=== PATIENT | female | born 1990 | race Caucasian/White ===

== ENCOUNTER 2020-12-11 12:28 | Inpatient (IN) | payer MEDICAID, SELFPAY ==
[2020-12-11 13:04] VITALS: BP 144/100; PULSE 103; RESP 18; TEMP 37; O2SAT 98
[2020-12-11 14:00] VITALS: BP 144/100; PULSE 103; RESP 18; TEMP 37
[2020-12-11 22:00] VITALS: BP 125/91; PULSE 98; RESP 18; TEMP 36.9; O2SAT 96
[2020-12-12] MEDS: ondansetron 4 MG Tablet PO (02:25)
--- NOTE | 2020-12-12 02:25 | PC.NURSE ---
pt requested med for puny feeling, zofran 4mg ppo given.
--- NOTE | 2020-12-12 03:30 | PC.NURSE ---
pt resting quietly with both eyes closed.
--- NOTE | 2020-12-12 12:36 | P.HP_ITS ---
Providers/Chief Complaint Admitting Physician: Remi Eldridge MD Chief Complaint: SI/dep - ROOM 124 HPI NPU History of Present Illness Sanjana Zavala is a 30 year old female who presented to the outside hospital endorsing suicidality, active addiction and was placed on a 96-hour hold. She was transferred to [facility] and admitted to the neuropsychiatric unit for definitive treatment of those issues. She reports that she was at [facility] for a day or 2 having alcohol withdrawal and currently she still having a little bit of a struggle with the alcohol. She denies previous psychiatric hospitalization, outpatient services or any mental health treatment with medications for PCP or anyone else. She reports she smokes cigarettes sometimes, drink alcohol near daily maybe 5-7 times a week about 1/2 pint a day she denies marijuana or any other illicit drug use. She went to a rehab called [facility] for detox at 1 point and is never had a DUI. She denies any history of suicide attempts in the past. She reports the nidus of her hospitalization is likely that her mother and she started drinking more heavily and at one point she had been eating and she had not stop drinking but she reports having a seizure. She reports her mother October 14 from a stroke unexpectedly. She reports that she fell back on old patterns which included drinking and that she had about 3 episodes that are likely notable for diminished eating behavior. Additionally in the same time her mother she caught her boyfriend cheating that along with some other psychosocial stressors really created a depressing situation where she was having thoughts to kill himself. At this point she feels she first needs to stop drinking and we discussed the risk benefits and alternatives of starting Librium 25 mg p.o. 3 times daily for her final days of withdrawal hopefully and we discussed a possible antidepressant/antianxiety medication in the morning. Psychiatric history: As above. Substance abuse history: As above. Family history: She endorses mental health and addiction issues on her father side the family but denies any suicide attempts or completions on either side of family. Developmental history: There were no problems with the , or delivery, learned to walk and talk and met developmental milestones on time, and denies need for speech therapy, learning support, emotional support or special education classes. Psychosocial history: She reports her parents were together when she was born and that there are 3 children that are product of their union. She has 2 older brothers that she had the same to parents. Her mother had 2 other children and her father had one other child that are her half siblings. She reports that her childhood was to [facility] at times with her dad's drinking and her parents fighting but she reports that her childhood was pretty normal and denies any emotional physical or sexual abuse. She endorses that she graduated high school and that she is a heterosexual with her longest relationship being 11 years. She never been , she never had children, she never been in the , and she endorses being a Evangelical. She reports her mom's appointment is customer service at [place] [id number] which is a convenient store this not in this area. She currently lives in a house with her brother who owns the house along with his and son. Legal history: Denied. Medical history: She reports that she has had low blood pressure issues in the past. Meds NPU Home Medications Medication Instructions Recorded Confirmed Last Taken Type No Known Home Medications 12/12/20 12/12/20 Unknown History Allergies Allergy/AdvReac Type Severity Reaction Status Date / Time No Known Allergies Allergy Verified 12/12/20 01:19 Mental Status Exam MSE Comments: This is an underweight white female in hospital scrubs with adequate grooming and eye contact. No abnormal movements except for mild psychomotor retardation. Cooperative with exam in mild distress. Speech was normal rate and volume. Mood described as better than yesterday, affect slightly subdued. Thought process organized. Thought contact: patient denies suicidal or homicidal ideation, there were no delusions reported or noted, patient denied auditory or visual hallucinations. Attention and concentration appeared intact and memory appeared reliable but none were formally tested. Patient is alert and oriented times three. Insight and judgment appear fair and impulse control appears limited. Vitals/I&O/Wt Last Vital Signs Temp 98.1 F 12/12/20 12:51 Pulse 118 H 12/12/20 12:51 Resp 16 12/12/20 12:51 BP 113/78 12/12/20 12:51 Pulse Ox 100 12/12/20 12:51 Weight last 48 hrs Weight 49.895 kg A&P Assessment and plan (1) Alcohol use disorder, severe, dependence: Status: Acute (2) Alcohol withdrawal: Status: Acute (3) Partner relational problem: Status: Acute (4) Bereavement: Status: Acute (5) Depression with anxiety: Status: Acute Additional A&P Information This is a 31-year-old white female with a long history of alcohol use and recent psychosocial challenges including and infidelity who presents with depression, suicidal thoughts on the 96-hour hold in the final stages of withdrawal. 1. Continue current medication. We will start Librium 25 mg p.o. 3 times daily for couple of days and discussed the possibility of starting antidepressants/anxiolytics in the morning. 2. Continue every 15 minute checks for safety. 3. Encourage individual, group and milieu therapies. 4. Encourage sober living treatment after discharge at the highest level of care to which he is willing to commit. Involuntary Hold Information 96 Hour Hold: 96 Hour Involuntary Admission: No Attestations NPU Medical Necessity Statement*: Inpatient hospitalization is medically necessary and the clinically appropriate intervention at this time. We will monitor medications and make changes as indicated. Patient will be in the hospital for over two midnights. Likely length of stay 2-4 days. Coding Level of Care Code Acute Senior Bi Architect for Jose Watson Diagnoses Alcohol use disorder, severe, dependence F10.20 Alcohol withdrawal F10.239 Partner relational problem Z63.0 Bereavement Z63.4 Depression with anxiety F41.8
[2020-12-12 12:51] VITALS: BP 113/78; PULSE 118; RESP 16; TEMP 36.7; O2SAT 100
[2020-12-12 20:22] VITALS: BP 127/89; PULSE 117; RESP 22; TEMP 36.8; O2SAT 97
[2020-12-12] MEDS: chlordiazePOXIDE 25 mg Capsule PO (21:24)
[2020-12-12] MEDS: trazodone 50 mg Tablet PO (21:24)
--- NOTE | 2020-12-12 21:25 | PC.NURSE ---
pt requested sleep med, Trazodone 50mg po given
--- NOTE | 2020-12-12 23:37 | PC.NURSE ---
pt resting quietly with both eyes closed.
[2020-12-13 06:00] VITALS: BP 115/79; PULSE 63; RESP 20; TEMP 36.5; O2SAT 96
[2020-12-13] MEDS: hyDROXYzine 25 mg Capsule 50 MG PO ×2 (06:41→21:50)
[2020-12-13] MEDS: loperamide 2 mg Capsule PO (06:41)
[2020-12-13] MEDS: chlordiazePOXIDE 25 mg Capsule PO ×3 (08:48→21:50)
[2020-12-13 14:00] VITALS: BP 100/65; PULSE 86; RESP 16; TEMP 36.7; O2SAT 98
--- NOTE | 2020-12-13 16:03 | PM.NPN ---
Subjective NPU Subjective: Interval history: Patient presents today reporting that the Librium was quite effective and that she is feeling pretty decent overall. A little groggy in has not eaten much but otherwise reports that she feels like she is improving. We discussed a plan to decrease the Librium from 3 a day to 2 a day and possibly getting her a couple for discharge but otherwise she feels confident her withdrawal is coming to a close. We discussed the risk-benefit and alternatives of likely discharge in the next 48 hours and she understood and agreed proceed as documented in this note. Mental Status Exam MSE Comments: This is an underweight white female in hospital scrubs with adequate grooming and eye contact. No abnormal movements except for mild psychomotor retardation. Cooperative with exam in no acute distress. Speech was normal rate and volume. Mood described as better, affect slightly subdued. Thought process organized. Thought contact: patient denies suicidal or homicidal ideation, there were no delusions reported or noted, patient denied auditory or visual hallucinations. Attention and concentration appeared intact and memory appeared reliable but none were formally tested. Patient is alert and oriented times three. Insight and judgment appear fair and impulse control appears limited, but improving. Vitals/I&O/Wt Last Vital Signs Temp 97.3 F L 12/13/20 22:00 Pulse 111 H 12/13/20 22:00 Resp 18 12/13/20 22:00 BP 116/85 12/13/20 22:00 Pulse Ox 100 12/13/20 22:00 A&P Additional A&P Information (1) Alcohol use disorder, severe, dependence: (2) Alcohol withdrawal: (3) Partner relational problem: (4) Bereavement: (5) Depression with anxiety: Additional A&P Information This is a 31-year-old white female with a long history of alcohol use and recent psychosocial challenges including and infidelity who presents with depression, suicidal thoughts on the 96-hour hold in the final stages of withdrawal. 1. Continue current medication. 2. Continue every 15 minute checks for safety. 3. Encourage individual, group and milieu therapies. 4. Encourage sober living treatment after discharge at the highest level of care to which he is willing to commit. Involuntary Hold Information 96 Hour Hold: 96 Hour Involuntary Admission: No Attestations NPU Medical Necessity Statement*: Inpatient hospitalization is medically necessary and the clinically appropriate intervention at this time. We will monitor medications and make changes as indicated. Likely length of stay 1-3 days. Coding Level of Care Code Acute Car Rental Manager for Jose Watson
[2020-12-13] MEDS: trazodone 50 mg Tablet PO (21:50)
--- NOTE | 2020-12-13 21:50 | PC.NURSE ---
PT REQUESTED SLEEP AND ANXIETY MEDS, TRAZODONE 50MG PO FOR SLEEP AND VISTARIL 50MG PO FOR ANXIETY GIVEN.
[2020-12-13 22:00] VITALS: BP 116/85; PULSE 111; RESP 18; TEMP 36.3; O2SAT 100
--- NOTE | 2020-12-13 23:00 | PC.NURSE ---
PT RESTING QUIETLY WITH BOTH EYES CLOSED.
[2020-12-14 06:00] VITALS: BP 116/85; PULSE 111; RESP 18; TEMP 36.3; O2SAT 100
[2020-12-14] MEDS: loperamide 2 mg Capsule PO ×2 (08:46→19:00)
[2020-12-14] MEDS: hyDROXYzine 25 mg Capsule 50 MG PO ×3 (08:46→21:08)
[2020-12-14] MEDS: chlordiazePOXIDE 25 mg Capsule PO ×3 (08:46→21:08)
[2020-12-14 13:48] VITALS: BP 109/74; PULSE 87; RESP 18; TEMP 36.7; O2SAT 97
--- NOTE | 2020-12-14 17:14 | PM.NPN ---
Subjective NPU Subjective: Interval history: Patient presents today reporting that she is feeling much better. We discussed cutting down on the Librium tomorrow. Including the risk benefits and alternatives and a plan for moving forward which might include a few pills if necessary but only a few. She continues to deny need for an antidepressant feeling that once her recovery is further advanced her mood will improve. She did discuss concerns about her brother calling and endorsing a plan to take her to the program she detoxed from in the past for 21-day treatment. He did not seem convinced to the treatment team that she needed therapy but apparently believes she needs 21 days. We discussed the fact that what she does after she discharges is up to her and we discussed the likelihood of discharge tomorrow. Mental Status Exam MSE Comments: This is an underweight white female in hospital scrubs with adequate grooming and eye contact. No abnormal movements except for mild psychomotor retardation. Cooperative with exam in no acute distress. Speech was normal rate and volume. Mood described as a little depressed but better, affect slightly subdued. Thought process organized. Thought contact: patient denies suicidal or homicidal ideation, there were no delusions reported or noted, patient denied auditory or visual hallucinations. Attention and concentration appeared intact and memory appeared reliable but none were formally tested. Patient is alert and oriented times three. Insight and judgment appear fair and impulse control appears limited, but improving. Vitals/I&O/Wt Last Vital Signs Temp 98.8 F 12/14/20 20:49 Pulse 70 12/14/20 20:49 Resp 20 H 12/14/20 20:49 BP 116/70 12/14/20 20:49 Pulse Ox 97 12/14/20 20:49 A&P Additional A&P Information (1) Alcohol use disorder, severe, dependence: (2) Alcohol withdrawal: (3) Partner relational problem: (4) Bereavement: (5) Depression with anxiety: This is a 31-year-old white female with a long history of alcohol use and recent psychosocial challenges including and infidelity who presents with depression, suicidal thoughts on the 96-hour hold in the final stages of withdrawal. 1. Continue current medication. 2. Continue every 15 minute checks for safety. 3. Encourage individual, group and milieu therapies. 4. Encourage sober living treatment after discharge at the highest level of care to which he is willing to commit. 5. Likely plan for discharge tomorrow. Involuntary Hold Information 96 Hour Hold: 96 Hour Involuntary Admission: No Attestations NPU Medical Necessity Statement*: Inpatient hospitalization is medically necessary and the clinically appropriate intervention at this time. We will monitor medications and make changes as indicated. Likely length of stay 1-2days. Coding Level of Care Code Acute Sewage Plant Operator for Jose Watson
[2020-12-14 20:49] VITALS: BP 116/70; PULSE 70; RESP 20; TEMP 37.1; O2SAT 97
[2020-12-14] MEDS: trazodone 50 mg Tablet PO (21:08)
[2020-12-15] MEDS: OLANZapine 5 mg ODT PO (01:56)
[2020-12-15] MEDS: trazodone 50 mg Tablet PO (01:56)
--- NOTE | 2020-12-15 01:58 | PC.NURSE ---
prn administered Zydis 5mg for anxiety and 50mg trazodone at this time for sleep, pt's roommate next door is keeping her awake.
[2020-12-15 06:00] VITALS: BP 98/64; PULSE 94; RESP 17; TEMP 36.7; O2SAT 96
[2020-12-15] MEDS: chlordiazePOXIDE 25 mg Capsule PO (08:44)
--- NOTE | 2020-12-15 11:57 | P.DS_ITS ---
Diagnoses at Discharge Discharge Diagnosis (1) Alcohol use disorder, severe, dependence: Status: Acute (2) Alcohol withdrawal: Status: Acute (3) Partner relational problem: Status: Acute (4) Bereavement: Status: Acute (5) Depression with anxiety: Status: Acute Reason for Visit Reason for Visit: SI/dep - ROOM 124 Brief History: History of Present Illness Sanjana Zavala is a 30 year old female who presented to the outside hospital endorsing suicidality, active addiction and was placed on a 96-hour hold. She was transferred to [facility] and admitted to the neuropsychiatric unit for definitive treatment of those issues. She reports that she was at [facility] for a day or 2 having alcohol withdrawal and currently she still having a little bit of a struggle with the alcohol. She denies previous psychiatric hospitalization, outpatient services or any mental health treatment with medications for PCP or anyone else. She reports she smokes cigarettes sometimes, drink alcohol near daily maybe 5-7 times a week about 1/2 pint a day she denies marijuana or any other illicit drug use. She went to a rehab called [facility] for detox at 1 point and is never had a DUI. She denies any history of suicide attempts in the past. She reports the nidus of her hospitalization is likely that her mother and she started drinking more heavily and at one point she had been eating and she had not stop drinking but she reports having a seizure. She reports her mother October 14 from a stroke unexpectedly. She reports that she fell back on old patterns which included drinking and that she had about 3 episodes that are likely notable for diminished eating behavior. Additionally in the same time her mother she caught her boyfriend cheating that along with some other psychosocial stressors really created a depressing situation where she was having thoughts to kill himself. At this point she feels she first needs to stop drinking and we discussed the risk benefits and alternatives of starting Librium 25 mg p.o. 3 times daily for her final days of withdrawal hopefully and we discussed a possible antidepressant/antianxiety medication in the morning. Psychiatric history: As above. Substance abuse history: As above. Family history: She endorses mental health and addiction issues on her father side the family but denies any suicide attempts or completions on either side of family. Developmental history: There were no problems with the , or delivery, learned to walk and talk and met developmental milestones on time, and denies need for speech therapy, learning support, emotional support or special education classes. Psychosocial history: She reports her parents were together when she was born and that there are 3 children that are product of their union. She has 2 older brothers that she had the same to parents. Her mother had 2 other children and her father had one other child that are her half siblings. She reports that her childhood was tough at times with her dad's drinking and her parents fighting but she reports that her childhood was pretty normal and denies any emotional physical or sexual abuse. She endorses that she graduated high school and that she is a heterosexual with her longest relationship being 11 years. She never been , she never had children, she never been in the , and she endorses being a [employer]. She reports her mom's appointment is customer service at [place] [id number] which is a convenient store this not in this area. She currently lives in a house with her brother who owns the house along with his and son. Legal history: Denied. Medical history: She reports that she has had low blood pressure issues in the past. Hospital Course Hospital Course She slowly acclimated to the individual, group and milieu therapy provided. Discussed the possibility of antidepressants but she was convinced that he wants her addiction was well managed depression with her weight. She showed significant improvement and had arrangements with her family to start any rehab a couple days after discharge. She was able to contract for safety prior to discharge. At the outside hospital, patient had routine laboratory studies which were within normal limits except for few outliers. Additionally there was a general medical evaluation which was also within normal limits and revealed no new acute processes. Discharge Summary: At the time of discharge, psychosis and lethality were denied. Mood and anxiety were well managed. Patient endorsed a plan to avoid all drugs of abuse and follow-up with the aftercare recommendations of the treatment team. Patient was evaluated and deemed to be absent credible lethality, and had achieved the maximum benefit from an inpatient hospitalization, so was discharged. Involuntary Hold Information 96 Hour Hold: 96 Hour Involuntary Admission: No Mental Status Exam MSE Comments: This is an underweight white female in hospital scrubs with adequate grooming and eye contact. No abnormal movements except for mild psychomotor retardation. Cooperative with exam in no acute distress. Speech was normal rate and volume. Mood described as better, affect congruent. Thought process organized. Thought contact: patient denies suicidal or homicidal ideation, there were no delusions reported or noted, patient denied auditory or visual hallucinations. Attention and concentration appeared intact and memory appeared reliable but none were formally tested. Patient is alert and oriented times three. Insight and judgment appear fair and impulse control appears improving. Discharge Data Vitals: Last Vital Signs Temp 98.0 F 12/15/20 06:00 Pulse 94 12/15/20 06:00 Resp 17 12/15/20 06:00 BP 98/64 12/15/20 06:00 Pulse Ox 96 12/15/20 06:00 Discharge Plan Discharge Patient Disposition: Home Condition: Stable Prescriptions: New trazodone 50 mg Tablet 50 mg PO BEDTIME PRN (Reason: Sleep) 30 Days Qty: 30 RF: 1 hydroxyzine pamoate 25 mg Capsule 50 mg PO Q6H PRN (Reason: Anxiety) 30 Days Qty: 120 RF: 1 Discharge Orders: Discharge Order (Routine); Ordered 12/15/20 Ordered By: Remi Eldridge Discharge Diet: Regular Discharge Activity: Resume usual activity Patient Instructions: Chlordiazepoxide (By mouth), Trazodone (By mouth), Hydroxyzine Pamoate (By mouth), Opioid Safety Discharge Attestations NPU Time Spent in Discharge Care*: less than 30 min Specific Discharge Activities: Specific discharge activities: educating patient, discussing with case management social worker/social workers/dc planners, documenting/other paperwork and evaluating patient/reviewing data Coding Level of Care Code Acute Chg FW DC note Diagnoses Alcohol use disorder, severe, dependence F10.20 Alcohol withdrawal F10.239 Partner relational problem Z63.0 Bereavement Z63.4 Depression with anxiety F41.8
[2020-12-15 12:25] VITALS: BP 98/64; PULSE 94; RESP 17; TEMP 36.7; O2SAT 96
[2020-12-15] MEDS: hyDROXYzine 25 mg Capsule 50 MG PO (14:31)
== END 2020-12-15 18:01 | disposition home or self-care (01) | DRG 897 ==
PROVIDERS: Admitting Provider Psychiatry & Neurology Psychiatry; Visit Provider Psychiatry & Neurology Psychiatry
DX: F10.239 Alcohol dependence with withdrawal, unspecified (principal); Z68.1 Body mass index [BMI] 19.9 or less, adult; Z81.8 Family history of other mental and behavioral disorders; F17.210 Nicotine dependence, cigarettes, uncomplicated; R63.6 Underweight; F41.8 Other specified anxiety disorders; Z63.0 Problems in relationship with spouse or partner; Z63.4 Disappearance and death of family member
CPT/HCPCS: Q0162